=== PATIENT | female | born 1995 | race Caucasian/White ===

== ENCOUNTER 2017-09-02 01:20 | Emergency (ER) | payer OTHER ==
[~2017-09-02] VITALS: Ht 162.6 cm; Wt 91.5 kg
[2017-09-02 01:35] VITALS: Ht 162.6 cm; Wt 91.5 kg
[2017-09-02] MEDS ORDERED: ACETAMINOPHEN 325 MG TAB PO STA (03:20)
--- NOTE | 2017-09-02 03:20 | ERD ---
ER Documentation Chief Complaint Chief Complaint vaginal bleeding since yesterday, states 4 weeks HPI This 21 y o female c/o vaginal bleeding , pt reports went to clinic and found ot she was ROS All systems reviewed and are negative except as per history of present illness. Allergies Allergies: Coded Allergies: No Known Drug Allergies (Verified Allergy, Unknown, 09/02/17) PMhx/Soc Medical and Surgical Hx: pt denies Medical Hx, pt denies Surgical Hx Hx Alcohol Use: No Hx Substance Use: No Hx Tobacco Use: No Smoking Status: Never smoker Physical Exam Vitals Vital Signs Date Time Temp Pulse Resp B/P Pulse Ox O2 Delivery O2 Flow Rate FiO2 09/02/17 01:35 98.5 95 20 144/77 99 Physical Exam Const: Well-nourished well-appearing well-hydrated 21-year-old female no acute distress Head: Eyes: ENT: Neck: Resp: Cardio: Abd: Soft, non tender, non distended Skin: Back: No midline or flank tenderness Ext: No cyanosis, or edema Neur: Awake and alert Psych: Normal Mood and Affect Result Diagram: 09/02/17 0335 Results 24 hrs Laboratory Tests Test 09/02/17 03:35 09/02/17 05:45 White Blood Count 10.310^3/ul Red Blood Count 4.7410^6/ul Hemoglobin 14.4g/dl Hematocrit 43.0% Mean Corpuscular Volume 90.7fl Mean Corpuscular Hemoglobin 30.4pg Mean Corpuscular Hemoglobin Concent 33.5g/dl Red Cell Distribution Width 12.2% Platelet Count 84281^3/UL Mean Platelet Volume 10.5fl Neutrophils % 66.0% Lymphocytes % 25.0% Monocytes % 7.1% Eosinophils % 1.1% Basophils % 0.3% Nucleated Red Blood Cells % 0.0/100WBC Neutrophils # 6.810^3/ul Lymphocytes # 2.610^3/ul Monocytes # 0.710^3/ul Eosinophils # 0.110^3/ul Basophils # 0.010^3/ul Nucleated Red Blood Cells # 0.010^3/ul Beta HCG, Quantitative 874.6mIU/ml Urine Color STRAW Urine Clarity CLEAR Urine pH 7.0 Urine Specific [place] 1.011 Urine Ketones NEGATIVEmg/dL Urine Nitrite NEGATIVEmg/dL Urine Bilirubin NEGATIVEmg/dL Urine Urobilinogen NEGATIVEmg/dL Urine Leukocyte Esterase NEGATIVELeu/ul Urine Microscopic RBC 1/HPF Urine Microscopic WBC 1/HPF Urine Hemoglobin 3+mg/dL Urine Glucose NEGATIVEmg/dL Urine Total Protein NEGATIVEmg/dl Current Medications Medications (Trade) Dose Ordered Sig/Dashawn Route PRN Reason Start Time Stop Time Status Last Admin Dose Admin Acetaminophen (Tylenol Tab) 650 mg ONCE STAT PO 09/02/17 03:20 09/02/17 03:22 DC Interpretation text CBC shows no evidence of hemorrhage or infection Urinalysis negative for evidence of infection, beta hCG 874.6. d. Procedures/MDM PROCEDURE: US Pelvis. CLINICAL INDICATION: Spine, . TECHNIQUE: Multiple sonographic images of the pelvis were obtained utilizing a transabdominal and endovaginal technique. The images were reviewed on a PACS workstation. COMPARISON: None. FINDINGS: The uterus is visualized and measures 6.4 x 5.1 x 5.4 cm. The endometrial echo complex is thickened and measures 16.0 mm. There is no evidence of an intra or extrauterine . The right ovary has a normal echotexture and measures 3.8 x 1.4 x 1.9 cm . The left ovary has a normal echotexture and measures 4.1 x 2.3 x 2.4 cm. There is a left ovarian corpus luteum cyst measuring 2.4 cm in maximal dimension. A small amount of free fluid is seen within the anterior cul- de-sac. No adnexal masses are noted. IMPRESSION: 1. No evidence of an intra or extrauterine . 2. Thickened endometrium measuring 16 mm. 3. Left ovarian corpus luteum cyst measuring 2.4 cm. 4. Small amount of free fluid in the anterior cul-de-sac. Electronically viewed and signed by Ronnell Okeefe Physician on 09/02/2017 04 :56 This 21-year-old female presents to emergency department for evaluation of vaginal bleeding, patient reports that she found out yesterday that she was at a clinic, reports that she is not wearing a pad but has stained her underwear, patient denies any abdominal cramping, nausea or vomiting. Emergency room course includes history and physical exam, routine diagnostic testing negative for hemorrhage, or infection, urinalysis negative for cytosis or nitrates suggestive of infection, the ultrasound radiologist's impression no evidence of a intra-or extrauterine , thickening of endometrium measuring 16 mm, left ovarian corpus luteum cyst measuring 2.4 cm, small amount of free fluid seen in anterior cul-de-sac. Beta hCG 874.6, patient is O+. And to discharge patient home return for repeat quantitative and ultrasound in 48 hours. Patient is stable with no new complaints during ER course, clinically there is no current evidence to ovarian torsion acute abdomen, nephritis, urinary tract infection or any other emergent condition appearing to require further evaluation or hospitalization. I feel the patient is stable for discharge at this time. I have discussed results, examination findings, the treatment plan with the patient and family present prior to discharge. Indications for emergent reevaluation, side effects of medication were also discussed. All questions were answered. Patient verbalizes understanding and agrees with plan of care. Departure Diagnosis: Primary Impression: Miscarriage Condition: Good Patient Instructions: Miscarriage Additional Instructions: Thank you for for coming to [facility] for your care today. Please ask your nurse or provider if you have questions about your care today and do not leave until all your questions have been answered. Please use any medications given as directed and follow-up with your doctor (or the doctor you were referred to) in the next 2-3 days. If you do not have a primary care doctor you may follow up at the [facility] (listed below). You may also use motrin and tylenol as needed for fever and/or pain unless instructed otherwise by your provider or nurse. Indications for more urgent follow-up have been discussed, but you may return to the Emergency Department at ANY time for any worrisome or worsening symptoms. If you have abdominal pain, please know that no test or exam you received is perfect and you should follow up within 8 hours for continued pain. If you had any imaging studies today, such as an X-Ray or CT Scan, these studies will be reviewed later by a radiologist. You will be called if there are important findings that were not identified today, so make sure the contact information you provided at registration is correct. If you received any narcotic pain control medicine today, such as Vicodin, Morphine or Dilaudid, your coordination and judgment may be affected for a number of hours. Please do not drive or operate heavy machinery, and you may want someone to assist you at home. If you were given a prescription for narcotic medication, be aware that it is very addictive- use sparingly and only if necessary. CHRIS CARRERA Sep 02, 2017 03:20
--- NOTE | 2017-09-02 04:56 | RADRPT ---
AMENDMENT: 09/02/2017 10:02:47 AM Asim Phelps Md Please disregard the AMENDMENT as it is a typographical error. AMENDMENT: 09/02/2017 10:01:55 AM Asim Phelps Md I have seen cases where the emergency provider "same there is no PROCEDURE: US Pelvis. CLINICAL INDICATION: Spine, . TECHNIQUE: Multiple sonographic images of the pelvis were obtained utilizing a transabdominal and endovaginal technique. The images were reviewed on a PACS workstation. COMPARISON: None. FINDINGS: The uterus is visualized and measures 6.4 x 5.1 x 5.4 cm. The endometrial echo complex is thickened and measures 16.0 mm. There is no evidence of an intra or extrauterine . The right ovary galan s a normal echotexture and measures 3.8 x 1.4 x 1.9 cm . The left ovary has a normal echotexture an d measures 4.1 x 2.3 x 2.4 cm. There is a left ovarian corpus luteum cyst measuring 2.4 cm in jimmy l dimension. A small amount of free fluid is seen within the anterior cul-de-sac. No adnexal masses are noted. IMPRESSION: 1. No evidence of an intra or extrauterine . 2. Thickened endometrium measuring 16 mm. 3. Left ovarian corpus luteum cyst measuring 2.4 cm. 4. Small amount of free fluid in the anterior cul-de-sac. RPTAT: HRSR .Asim Phelps MD, MD Date Time Electronically viewed and signed by .Asim Phelps MD, on 09/02/2017 10:02 .R/
[2017-09-02] MEDS ORDERED: ACET500C5 PO (06:56)
== END 2017-09-02 07:01 | disposition home or self-care (01) ==
LOC: FTE 01:20
DX: O03.9 Complete or unspecified spontaneous abortion without complication (principal)
CPT/HCPCS: 76801; 76817; 81001; 84702; 85025; 86900; 86901; Z7502; Z7610